=== PATIENT | male | born 1980 | race Caucasian/White ===

== ENCOUNTER 2019-09-26 05:45 | Outpatient (RCR) | payer MEDICARE ==
[~2019-09-26] VITALS: Ht 190 cm; Wt 115.0 kg
[~2019-09-26 05:45] MED LIST: AMOX-355 PO; FLUT16SP22 NSEACH; HYDR25CA5; LORA0.5T PO; LORA10CA PO; PARO30TA2 PO; PARO40TA PO; PARO40TA47; VICODIN 5-325 MG TAB PO
== END 2019-09-26 15:07 | disposition home or self-care (01) ==
LOC: PREOP 05:45
PROVIDERS: ATTEND Urology
DX: Z01.818 Encounter for other preprocedural examination (principal); N43.3 Hydrocele, unspecified; Z20.828 Contact with and (suspected) exposure to other viral communicable diseases
CPT/HCPCS: 87635

== ENCOUNTER 2019-10-01 06:01 | Day surgery (SDC) | payer MEDICARE ==
[~2019-10-01] VITALS: Ht 190 cm; Wt 115.0 kg
[2019-10-01] VITALS (9 sets, daily range): BP systolic 117–146; BP diastolic 77–99
--- OUTSIDE RECORDS SUMMARY | 2019-10-01 06:17 | XMS REPORT ---
Author Author [employer] [facility] [place] [employer] [facility] [employer] Address [address] [address] Care Team Providers Care Theatre Instructor Name Role Phone KIRAN CHATTERJEE Unavailable Unavailable STEFANIE CATALAN Unavailable Unavailable PARDEEP YE Unavailable Unavailable CATALAN, STEFANIE Unavailable ALAYNA, STEFANIE Unavailable KERRI DIAZ Unavailable ALAYNA, STEFANIE Unavailable HEBER TRIPLETT Unavailable JOMAR SOLIS Unavailable KERRI VIVAS Unavailable Migration, Doctor Unavailable Unavailable Migration, Doctor Unavailable Unavailable Migration, Doctor Unavailable Unavailable Migration, Doctor Unavailable Unavailable ASHWINI ARCOS Unavailable MILTON SANTO Unavailable PCP, NONE Unavailable Unavailable Unavailable Unavailable JERRY GUILLERMO, FLORIN Stallings Unavailable Unavailable ANGELICA GUILLERMO, CHENCHO Regan Unavailable Unavailable BRITTNEE GUILLERMO, ELENO Velazquez Unavailable Unavailable Unavailable Unavailable Unavailable Unavailable Unavailable Unavailable Allergies The data below is from unstructured sources Substance Reaction Event Type N.K.D.A. Info Not Available Non Drug Allergy No Information Medications Medication Ingredient Drug Dose Dates Status Sig Sig Care Class(es) (Normalized) (Original) Provid er cetirizine Cetirizine Histamine-1 10 mg 02-28-20 Active no Cetirizine no hydrochlori Translation Receptor 18 information HCl 10 MG name de 10 mg s: [ Antagonist Orally Once oral tablet Cetirizine a day 1 (3 HCl 10 MG] tablet 24h sources.) Feb, 30 day(s) Active predniSONE predniSONE no 60 mg 03-16-20 Active no Predn iSONE no 20 mg oral Translation information 18 information 20 MG O rally name tablet (1 s: [ Once a day 3 source.) PredniSONE tablet daily 20 MG] for 3 days, then 2 tablets daily for 3 days, then 1 tablet daily for 3 days. 24h Feb, 9 days Active Problems Problem Normalized Date Last Normalized Normalized Provider Fa cility Classification Problem(s) Recorded Problem Problem Sta tus Duration Anxiety Anxiety state, 09-19-2019 - Chronic Active FLORIN [facility] Via disorders (2 unspecified Elisabeth EDWARDS sources.) [facility] [place] ([id number]) Immunizations Contact with 09-30-2019 - Episodic Active ELENOSHWETA BEAULIEU [facility] Via and screening and [facility] for infectious (suspected) Hospital - disease (2 exposure to [place] sources.) other viral ([id number]) communicable diseases Other upper Deviated nasal 09-19-2019 - Episodic Active TRICIA DOMINGUEZ [facility] Via respiratory septum , [facility] disease (4 Hospital - sources.) [place] ([address]687) Headache; Headache 09-19-2019 - Episodic Active FLORIN [facility] Via including Elisabeth EDWARDS migraine (2 [facility] Hospital - sources.) [place] ([id number]) Other male Hydrocele, 09-30-2019 - Episodic Active ELENOSHWETA BEAULIEU , [facility] Via genital unspecified [facility] disorders (2 Hospital - sources.) [place] ([id number]) Other upper Hypertrophy of 09-19-2019 - Episodic Active TRICIA DOMINGUEZ [facility] Via respiratory nasal , [facility] disease (4 turbinates Hospital - sources.) [place] ([address]339) Residual Other and 09-19-2019 - Chronic Active FLORIN [facility] Via codes; unspecified Elisabeth EDWARDS unclassified special Hospital - (4 sources.) symptoms or [place] syndromes, not ([id number]) elsewhere classified Other upper Other disease 09-19-2019 - Episodic Active FLORIN [facility] Via respiratory of nasal Elisabeth EDWARDS disease (2 cavity and MD Hospital - sources.) sinuses [place] ([id number]) Procedures Procedure Normalized Procedure Procedure Result Performer Facility Date 03-16-2018 [facility] visit, estab pt no information no name [facility] ([id number]) 03-07-2018 [facility] visit, estab pt no information no name [facility] ([id number]) 02-27-2018 [facility] visit, estab pt no information no name [facility] ([id number]) 07-04-2014 [place] influenza no information no name [facility] (69018) Immunizations The data below is from unstructured sources No Known Immunizations No Known Immunizations No Known Immunizations No Known Immunizations No Known Immunizations No Known Immunizations No Known Immunizations No Known Immunizations No Known Immunizations No Known Immunizations No Known Immunizations No Known Immunizations No Known Immunizations No Known Immunizations No Known Immunizations No Known Immunizations No Known Immunizations No Known Immunizations No Known Immunizations No Known Immunizations No Known Immunizations No Known Immunizations No Known Immunizations No Known Immunizations No Known Immunizations No Known Immunizations No Known Immunizations Results Test Name Value Interpretation Reference Range Date Time Fa cility (Normalized) (Normalized) (Medline Reference) laboratory on 2019-09-26 Coronavirus Ab Negative (no code) 09-26-2019 PENDING LOC ATION Qn (S) 04:02-0400 [facility] ([id number]) laboratory on 2019-09-18 Albumin 4.7 g/dL (N) 3.4 - 5.4 g/dL [facility] [Mass/Vol] [facility] (04266) Albumin/Globulin 2.1 {ratio} (N) 1 - 2.5 {ratio} Comm [facility] [Mass ratio] [facility] (13778) ALP [Catalytic 59 U/L (N) 44 - 147 U/L [facility] activity/Vol] [facility] (66022) ALT [Catalytic 69 U/L (H) 4 - 40 U/L [facility] ealth activity/Vol] [facility] (90910) AST [Catalytic 30 U/L (N) 10 - 34 U/L [facility] activity/Vol] [facility] (56061) Basophils (Bld) 0.031 10*3/uL (N) 0 - 0.3 10*3/uL [facility] [#/Vol] [facility] (61450) Basophils/100 0.5 % (N) 0.5 - 1 % [facility] WBC (Bld) [facility] (15081) Bilirubin 0.5 mg/dL (N) 0.1 - 1.2 mg/dL [facility] [Mass/Vol] [facility] (89260) Calcium 9.6 mg/dL (N) 8.5 - 10.2 mg/dL [facility] [Mass/Vol] [facility] (77833) Chloride 105 mmol/L (N) 95 - 106 mmol/L [facility] [Moles/Vol] [facility] (59142) CO2 [Moles/Vol] 26 mmol/L (N) 23 - 29 mmol/L [facility] (22492) Creatinine 0.98 mg/dL (N) [facility] [Mass/Vol] [facility] (78478) Eosinophils 0.079 10*3/uL (N) 0.05 - 0.5 [facility] alth (Bld) [#/Vol] 10*3/uL [facility] (67692) Eosinophils/100 1.3 % (N) 1 - 4 % [facility] WBC (Bld) [facility] (46499) Erythrocyte 12.4 % (N) 11.6 - 14.6 % [facility] ealth distribution [facility] (RBC) [facility] [Ratio] (16024) GFR/1.73 sq M 113 (N) 90 - 120 [facility] alth predicted among mL/min/{1.73_m2} mL/min/{1.73_m2} [facility] MDRD [facility] (S/P/Bld) [Vol (76930) rate/Area] GFR/1.73 sq 97 (N) 90 - 120 [facility] Heal th M.predicted MDRD mL/min/{1.73_m2} mL/min/{1.73_m2} [facility] (S/P/Bld) [Vol [facility] rate/Area] (01254) Globulin (S) 2.2 g/dL (N) 2 - 3.5 g/dL [facility] ealt [Mass/Vol] [facility] (97059) Glucose 94 mg/dL (N) 60 - 125 mg/dL [facility] [Mass/Vol] [facility] (19565) Hematocrit (Bld) 42.7 % (N) 36.1 - 50.3 % [facility] ity Health [Volume [facility] fraction] [facility] (18914) Hemoglobin (Bld) 14.4 g/dL (N) 12.1 - 17.2 g/dL [facility] [Mass/Vol] [facility] (98124) Lymphocytes 2.336 10*3/uL (N) 0.9 - 2.9 [facility]th (Bld) [#/Vol] 10*3/uL [facility] (23024) Lymphocytes/100 38.3 % (N) 20 - 40 % [facility] WBC (Bld) [facility] (09765) MCH (RBC) 32.4 pg (N) 27 - 31 pg [facility] [Entitic mass] [facility] (27821) MCHC (RBC) 33.7 g/dL (N) 32 - 36 g/dL [facility] He alth [Mass/Vol] [facility] (19601) MCV (RBC) 96.2 fL (N) 80 - 100 fL [facility] Hea lth [Entitic vol] [facility] (19303) Monocytes (Bld) 0.604 10*3/uL (N) 0.3 - 0.9 Communit y Health [#/Vol] 10*3/uL [facility] (29343) Monocytes/100 9.9 % (N) 2 - 8 % [facility] WBC (Bld) [facility] (74706) Neutrophils 3.05 10*3/uL (N) 1.7 - 7 10*3/uL [facility] (Bld) [#/Vol] [facility] (97960) Neutrophils/100 50 % (N) 40 - 60 % [facility] WBC (Bld) [facility] (81693) Platelet mean 8.9 fL (N) 7.2 - 11.7 fL [facility] volume (Bld) [facility] [Entitic vol] [facility] (64340) Platelets (Bld) 262 10*3/uL (N) 150 - 450 [facility] [#/Vol] 10*3/uL [facility] (71723) Potassium 4.4 mmol/L (N) 3.7 - 5.2 mmol/L [facility] [Moles/Vol] [facility] (04912) Protein 6.9 g/dL (N) 6.4 - 8.3 g/dL [facility] [Mass/Vol] [facility] (29773) RBC (Bld) 4.44 10*6/uL (N) 4.2 - 6.1 [facility] [#/Vol] 10*6/uL [facility] (40014) Sodium 139 mmol/L (N) 135 - 145 mmol/L [facility] [Moles/Vol] [facility] (69232) Urea nitrogen 15 mg/dL (N) 7 - 20 mg/dL [facility] [Mass/Vol] [facility] (65692) Urea NOT APPLICABLE (no code) [facility] (63165) WBC (Bld) 6.1 10*3/uL (N) 3.5 - 10.5 [facility] [#/Vol] 10*3/uL [facility] (15913) not yet categorized on 2019-05-07 Exp date Negative (no code) [facility] Healt [facility] (50655) Exp date 12/10/2020 (no code) [facility] (79929) Lot # [id number] (no code) [facility] (86250) Vital Signs Vital Sign Value Interpretation Reference Date Time Care Prov ider Facility (Normalized) (Normalized) Range BMI (Body Mass 34.52 kg/m2 (no code) 15 - 25 kg/m2 03-16-2018 D AVID TORCHIA Community Index) 18:00-[id number] [place] [address] (15705) BMI (Body Mass 34.57 kg/m2 (no code) 15 - 25 kg/m2 03-07-2018 CH RISTY Community Index) 16:05-[id number] [place] [address] (30572) BMI (Body Mass 34.52 kg/m2 (no code) 15 - 25 kg/m2 02-27-2018 YANE HAND Community Index) 16:50-[address] ([address]) Body 97.6 [degF] (no code) 97.8 - 99.0 03-16-2018 KERRI WILLIS [facility] Temperature [degF] 18:00-[address] [place] [address] (97444) Body 98.2 [degF] (no code) 97.8 - 99.0 03-07-2018 [facility] Temperature [degF] 16:05-[address] ([address]) Body 98.1 [degF] (no code) 97.8 - 99.0 02-27-2018 [facility] [degF[facility] 16:50-[address] ([address]) Body 97.6 [degF] (no code) 97.8 - 99.0 07-04-2014 [facility] Temperature [degF] 16:05-[address] ([address]61) Body 98 [degF] (no code) 97.8 - 99.0 02-12-2014 [facility] Temperature [degF] 19:45-[address] [place] [address] (37937) Body weight 104.95 kg (no code) kg 07-04-2014 [place] [facility] 16:05-[address] ([address]) Body weight 103.42 kg (no code) kg 02-12-2014 [facility] 19:45-[address] [place] [address] (47839) Height 190.5 cm (no code) cm 03-16-2018 KERRI Barron [facility]ity 18:00-[address] [place] [address] (95944) Height 190.5 cm (no code) cm 03-07-2018 [facility] ity 16:05-[address] (80732) Height 190.5 cm (no code) cm 02-27-2018 HEBER Simmsu nity 16:50-[address] ([address]) Height 190.5 cm (no code) cm 07-04-2014 ASHWINI Dove ity 16:05-[address] [place] [address] ([id number]) Height 190.5 cm (no code) cm 02-12-2014 MILTON Natarajan mmunity 19:45-[address] [place] [address] (88127) Weight 125.28 kg (no code) kg 03-16-2018 KERRI ORTEGA [facility] 18:00-[address] [place] [address] ([id number]) Weight 125.47 kg (no code) kg 03-07-2018 JOMAR Springer nity 16:05-[address] [place] [address] (42773) Weight 125.28 kg (no code) kg 02-27-2018 HEBER Simms unity 16:50-[address] ([address]) Interventions No Information Plan of Treatment The data below is from unstructured sources Activity Details Follow Up prn Reason: Activity Details Follow Up 1 Year Reason: Activity Details Follow Up if not improving with PCP or reg follow up Reason: Goals No Information Social History No Information Functional Status No Information Mental Status No Information Encounters Encounter Normalized Encounter Encounter Diagnosis Care Provi vicki Organization Date Type 03-16-2018 (WALK-IN) Walk-In Care Acute sinusitis, KERRI CHAUDHARI [place] (no [facility] unspecified phone) CARE (no phone) 03-07-2018 (WALK-IN) Walk-In Care Acute sinusitis, JOMAR [place]Z (no [facility] unspecified phone) CARE (no phone) 02-27-2018 (WALK-IN) Walk-In Care Acute upper DIVINE DAVIN ON (no [facility] respiratory infection, phone) CARE (no phone) unspecified 11-06-2014 Emergency department no information [facility] Via Elisabeth - patient visit (no phone) [facility] 11-06-2014 (no phone) 09-26-2019 Patient encounter no information ELENO BEAULIEU MD ( no [facility] Via Elisabeth - procedure phone) [facility] 09-26-2019 (no phone) 09-24-2019 Patient encounter no information ELENO BEAULIEU MD ( no [facility] Via Elisabeth procedure phone) [facility] (no phone) 09-18-2019 Patient encounter no information NONE PCP (no phone ) [facility] procedure (no phone) (no phone) [facility] (no phone) 09-11-2019 Patient encounter no information NONE PCP (no phone ) [facility] procedure (no phone) [facility] (no phone) 05-07-2019 Patient encounter no information no name no or ganization name procedure 03-07-2018 Patient encounter no information no name no or ganization name procedure 09-26-2014 Patient encounter no information CHENCHO DOMINGUEZ MD (no [facility] Via Elisabeth - procedure phone) [facility] 09-26-2014 (no phone) 09-24-2014 Patient encounter no information CHENCHO DOMINGUEZ MD (no [facility] Via Elisabeth procedure phone) [facility] (no phone) 03-16-2018 Telephone encounter no information JOMAR SOLIS (no [facility] phone) (no phone) no information Encounter for general no name no organ ization name adult medical examination without abnormal findings no information Pre-operative no name (no phone) examination, unspecified no information Encounter for other no name (no phone) preprocedural examination Medical Equipment No Information Payers No Information Summary Purpose eClinicalWorks SubmissioneClinicalWorks SubmissioneClinicalWorks SubmissioneClinicalWorks SubmissioneClinicalWorks SubmissioneClinicalWorks SubmissioneClinicalWorks Submission Additional Source Comments This clinical document has been generated using [employer] software that has been certified by the Office of the National Coordinator for Health Information Technology (ONC 15.99.04.3023.Diam.31.00.0.359407) and the National Committee for Bit Setter (NCQA, as an eMeasure certified technology). FOR RECORDS PERTAINING TO PATIENTS WHO ARE OR HAVE BEEN ENROLLED IN A CHEMICAL D EPENDENCY/SUBSTANCE ABUSE PROGRAM, SOME INFORMATION MAY BE OMITTED. This clinica l summary was aggregated from multiple sources. Caution should be exercised in using it in the provision of clinical care. This summary normalizes information from multiple sources, and as a consequence, information in this document may ma terially change the coding, format and clinical context of patient data. In leah tion, data may be omitted in some cases. CLINICAL DECISIONS SHOULD BE BASED ON T HE PRIMARY CLINICAL RECORDS. [employer]. provides no warranty or guara ntee of the accuracy or completeness of information in this document.The followi ng information is based on time limited clinical information UNRECOGNIZED CONTENT PROVIDED BELOW FOR UNRECOGNIZED SECTION MEDICAL (GENERAL) HISTORY Type Description Date Medical History depression, anxiety Surgical History tonsillectomy Surgical History sinus surgery 2014 Surgical History Nasal repair 2015 UNRECOGNIZED CONTENT PROVIDED BELOW FOR UNRECOGNIZED SECTION REASON FOR VISIT Sore throat, headache, swollen lymph nodes - MPeters, MASore throat; was given Z yrtec on 02/27/18 in [facility], but it has not helped - MPeters, MAHeadache, sinus con gestion, rhinnorhea in the evening, aching pain in neck rated a 7. Augmentin thom en today, states he has 3 left. Zyrtec and Paxil also taken today. Nikkie MCGILL-MigEMR-MigEMR-MigEMR-Codey
--- OUTSIDE RECORDS SUMMARY | 2019-10-01 06:18 | XMS REPORT ---
Author Yony Abarca [facility] eClinicalWorks Address Unknown Phone Unavailable Care Team Providers Care Medical Accountant Name Role Phone PARDEEP YE Unavailable Allergies No Known Allergies Problems Problem Type Condition Code Onset Dates Condition Statu s Problem Nasal congestion R09.81 Active Medications No Known Medications Results No Known Results Summary Purpose eClinicalWorks Submission
--- OUTSIDE RECORDS SUMMARY | 2019-10-01 06:18 | XMS REPORT ---
Author Author Yony SOLIS Organization [facility] Address [address] [place] [address] Care Team Providers Care Shrimping Boat Captain Name Role Phone JOMAR SOLIS Unavailable PROBLEMS Type Condition ICD9-CM Code [id number] Code Onset Dates Condition S tatus SNOMED Code Problem Dysthymia F34.1 Active 67565787 Problem Alcoholism F10.20 Active 2542712 ALLERGIES Substance Reaction Event Type Date Status Cefaclor Unknown Drug Allergy Feb, Active ENCOUNTERS Encounter Location Date Diagnosis [facility] [address] [id number] [address] [place] [phone] Feb, Acute non-recurrent sinusiti s, unspecified location J01.90 [facility] [address] [id number] [address] [place] [address] Feb, Acute upper respiratory infe ction J06.9 [facility] [id number] [place] [address] Mar, Alcoholism F10.20 and Dysthy yonathan F34.1 [facility] [address] [id number] [address] [place] [phone] Feb, Acute suppurative otitis med ia of right ear without spontaneous rupture of tympanic membrane, recurrence not specified H66.001 [facility] [address] [id number] [address] [place] [phone] 17 Feb, 2017 Sore throat J02.9 and Acute suppurative otitis media of right ear without spontaneous rupture of tympanic membrane, recurrence not specified H66.001 [facility] [address] [facility] [id number] [address] [place] [address] August, Acute non-recurrent pansinus itis J01.40 [facility] [address] [id number] [address] [place] [address] Jan, Acute non-recurrent pansinus itis J01.40 [facility] [address] [id number] [address] [place] [phone] 17 Jan, 2016 Acute upper respiratory infe ction, unspecified J06.9 [facility] [address] [facility] [id number] [address] [place] [phone] Sep, Insomnia G47.00 [facility] [address] [id number] [address] [place] [phone] Jul, Wellness examination Z00.00 [facility] [address] [facility] [id number] [address] [place] [phone] Jul, [facility] [address] [facility] [id number] [address] [place] [phone] Jul, Nasal congestion R09.81 ; In somnia G47.00 ; Alcohol abuse F10.10 and Wellness examination Z00.00 [facility] [address] [id number] [address] [place] [phone] Jan, Nasal congestion R09.81 [facility] [address] [id number] [address] [place] [phone] Jan, [facility] [address] [id number] [address] [place] [phone] Jan, Nasal congestion R09.81 [facility] [address] [id number] [address] [place] [phone] 14 Jul, 2014 [facility] [address] [id number] [address] [place] [phone] Jul, [facility] [address] [facility] [id number] [address] [place] [phone] Jun, [facility] [address] [facility] [id number] [address] [place] [phone] Jun, [facility] [address] [id number] [address] [place] [phone] Jan, [facility] [address] [id number] [address] [place] [phone] Jan, [facility] [address] [id number] [address] [place] [phone] Feb, [facility] [address] [id number] [address] [place] [phone] Feb, [facility] [address] [id number] [address] [place] [phone] Feb, [facility] [address] [id number] [address] [place] [phone] Feb, [facility] [address] [id number] [address] [place] [phone] Feb, [facility] [address] [id number] [address] [place] [phone] Feb, [facility] [address] [id number] [address] [place] [phone] Feb, [facility] [address] [id number] [address] [place] [phone] Feb, [facility] [address] [id number] [address] [place] [phone] Feb, [facility] [address] [id number] [address] [place] [phone] Dec, [facility] [address] [id number] [address] [place] [phone] Nov, [facility] [address] [id number] [address] [place] [id number] Mar, IMMUNIZATIONS No Known Immunizations SOCIAL HISTORY Never Assessed REASON FOR VISIT Sore throat; was given Zyrtec on 02/27/18 in [facility], but it has not helped - Osmel riddle MA PLAN OF CARE Activity Details Follow Up if not improving with PCP or reg follow up Reason: VITAL SIGNS Height 75 in 2018-03-07 Weight 276.6 lbs 2018-03-07 Temperature 98.2 degrees Fahrenheit 2018-03-07 Heart Rate 76 bpm 2018-03-07 Respiratory Rate 20 2018-03-07 BMI 34.57 kg/m2 2018-03-07 Blood pressure systolic 120 mmHg 2018-03-07 Blood pressure diastolic 90 mmHg 2018-03-07 MEDICATIONS Medication Instructions Dosage Frequency Start Date End Date Duration S tatus Cetirizine HCl 10 MG Orally Once a day 1 tablet 24h 13 Feb, 2018 30 day(s) Active Augmentin 875-125 MG Orally every 12 hrs 1 tablet 12h Feb, 10 day(s) Active Paxil 30 MG Orally Once a day 1 tablet in the morning 24h Active RESULTS No Results PROCEDURES Procedure Date Ordered Result Body Site [facility] VISIT ESTABLISHED PATIENT Mar 07, 2018 INSTRUCTIONS MEDICATIONS ADMINISTERED No Known Medications MEDICAL (GENERAL) HISTORY Type Description Date Medical History depression, anxiety Surgical History tonsillectomy Surgical History sinus surgery 2014 Surgical History Nasal repair 2015
--- OUTSIDE RECORDS SUMMARY | 2019-10-01 06:18 | XMS REPORT ---
Author Author Yony ARCOS Organization [facility] Address [address] [place] [address] Care Team Providers Care Transformer Builder Name Role Phone ASHWINI ARCOS Unavailable PROBLEMS Type Condition ICD9-CM Code [id number] Code Onset Dates Condition S tatus SNOMED Code Problem Alcoholism F10.20 Active 8679893 Problem Dysthymia F34.1 Active [id number] ALLERGIES No Information ENCOUNTERS Encounter Location Date Diagnosis [facility] [address] [id number] [address] [place] [address] 30 Feb, 2018 Acute sinusitis J01.90 [facility] [address] [phone] Feb, [facility] [address] [id number] [address] [place] [address] Feb, Acute non-recurrent sinusiti s, unspecified location J01.90 [facility] [address] [id number] [address] [place] [address] Feb, Acute upper respiratory infe ction J06.9 [facility] [address] [id number] [address] [place] [phone] Mar, Alcoholism F10.20 and Dysthy yonathan F34.1 [facility] [address] [id number] [address] [place] [phone] 28 Feb, 2017 Acute suppurative otitis med ia of right ear without spontaneous rupture of tympanic membrane, recurrence not specified H66.001 [facility] [address] [facility] [id number] [address] [place] [id number] 17 Feb, 2017 Sore throat J02.9 and Acute suppurative otitis media of right ear without spontaneous rupture of tympanic membrane, recurrence not specified H66.001 [facility] [address] [id number] [address] [place] [phone] August, Acute non-recurrent pansinus itis J01.40 [facility] [address] [id number] [address] [place] [phone] Jan, Acute non-recurrent pansinus itis J01.40 [facility] [address] [id number] [address] [place] [phone] 17 Jan, 2016 Acute upper respiratory infe ction, unspecified J06.9 [facility] [address] [id number] [address] [place] [address] Sep, Insomnia G47.00 [facility] [address] [id number] [address] [place] [phone] 19 Jul, 2015 Wellness examination Z00.00 [facility] [address] [id number] [address] [place] [phone] Jul, [facility] [address] [facility] [id number] [address] [place] [phone] 18 Jul, 2015 Nasal congestion R09.81 ; In somnia G47.00 ; Alcohol abuse F10.10 and Wellness examination Z00.00 [facility] [address] [facility] [id number] [address] [place] [phone] Jan, Nasal congestion R09.81 [facility] [address] [id number] [address] [place] [phone] 05 Jan, 2015 [facility] [address] [facility] [id number] [address] [place] [phone] Jan, Nasal congestion R09.81 [facility] [address] [id number] [address] [place] [phone] 14 Jul, 2014 [facility] [address] [facility] [id number] [address] [place] [phone] 13 Jul, 2014 [facility] [address] [id number] [address] [place] [phone] Jun, [facility] [address] [id number] [address] [place] [id number] Jun, [facility] [address] [id number] [address] [place] [phone] Jan, [facility] [address] [id number] [address] [place] [address] Jan, [facility] [address] [id number] [address] [place] [phone] Feb, [facility] [address] [id number] [address] [place] [phone] Feb, [facility] [address] [id number] [address] [place] [phone] Feb, [facility] [address] [id number] [address] [place] [phone] Feb, [facility] [address] [id number] [address] [place] [phone] 08 Feb, 2012 [facility] [address] [id number] [address] [place] [phone] Feb, [facility] [address] [id number] [address] [place] [phone] Feb, [facility] [address] [id number] [address] [place] [phone] Feb, [facility] [address] [id number] [address] [place] [id number] Feb, [facility] [address] [id number] [address] [place] [address] Dec, [facility] [address] [id number] [address] [place] [phone] Nov, [facility] [address] [id number] [address] [place] [phone] 31 Dec, 2010 IMMUNIZATIONS No Known Immunizations SOCIAL HISTORY Never Assessed REASON FOR VISIT PLAN OF CARE VITAL SIGNS Height 75 in 2014-07-04 Weight 231.38 lbs 2014-07-04 Temperature 97.6 degrees Fahrenheit 2014-07-04 Heart Rate 72 bpm 2014-07-04 Respiratory Rate 20 2014-07-04 Blood pressure systolic 125 mmHg 2014-07-04 Blood pressure diastolic 75 mmHg 2014-07-04 MEDICATIONS No Known Medications RESULTS No Results PROCEDURES Procedure Date Ordered Result Body Site INFLUENZA ASSAY W/OPTIC July 04, 2014 INSTRUCTIONS MEDICATIONS ADMINISTERED No Known Medications MEDICAL (GENERAL) HISTORY Type Description Date Medical History depression, anxiety Surgical History tonsillectomy Surgical History sinus surgery 2014 Surgical History Nasal repair 2015
--- OUTSIDE RECORDS SUMMARY | 2019-10-01 06:18 | XMS REPORT ---
Author Author Yony VIVAS Organization [facility] Address [address] [place] [address] Care Team Providers Care Vault Manager Name Role Phone KERRI VIVAS Unavailable PROBLEMS Type Condition ICD9-CM Code [id number] Code Onset Dates Condition S tatus SNOMED Code Problem Dysthymia F34.1 Active 83265184 Problem Alcoholism F10.20 Active 8722997 ALLERGIES Substance Reaction Event Type Date Status Cefaclor Unknown Drug Allergy Feb, Active ENCOUNTERS Encounter Location Date Diagnosis [facility] [address] [id number] Feb, Acute sinusitis J01.90 [facility] [address] [id number] Feb, [facility] [address] [address] Feb, Acute non-recurrent sinusiti s, unspecified location J01.90 [facility] [address] [address] Feb, Acute upper respiratory infe ction J06.9 [facility] [address] [address] Mar, Alcoholism F10.20 and Dysthy yonathan F34.1 [facility] [address] [id number] 28 Feb, 2017 Acute suppurative otitis med ia of right ear without spontaneous rupture of tympanic membrane, recurrence not specified H66.001 [facility] [address] [id number] [address] [place] [address] 17 Feb, 2017 Sore throat J02.9 and Acute suppurative otitis media of right ear without spontaneous rupture of tympanic membrane, recurrence not specified H66.001 [facility] [address] [id number] [address] [place] [address] August, Acute non-recurrent pansinus itis J01.40 [facility] [address] [id number] [address] [place] [address] Jan, Acute non-recurrent pansinus itis J01.40 [facility] [address] [id number] [address] [place] [phone] 17 Jan, 2016 Acute upper respiratory infe ction, unspecified J06.9 [facility] [address] [id number] [address] [place] [address] Sep, Insomnia G47.00 [facility] [address] [facility] [id number] [address] [place] [address] Jul, Wellness examination Z00.00 [facility] [address] [facility] [id number] [address] [place] [address] Jul, [facility] [address] [facility] [id number] [address] [place] [address] 18 Jul, 2015 Nasal congestion R09.81 ; In somnia G47.00 ; Alcohol abuse F10.10 and Wellness examination Z00.00 [facility] [address] [facility] [id number] [address] [place] [address] Jan, Nasal congestion R09.81 [facility] [address] [id number] [address] [place] [address] Jan, [facility] [address] [id number] [address] [place] [address] Jan, Nasal congestion R09.81 [facility] [address] [facility] [id number] [address] [place] [address] 14 Jul, 2014 [facility] [address] [facility] [id number] [address] [place] [phone] Jul, [facility] [address] [id number] [address] [place] [address], [place] [address] Jun, [facility] [address] [id number] [address] [place] [address], [place] [address] Jun, [facility] [address] [id number] [address] [place] [address], [place] [address] Jan, [facility] [address] [id number] [address] [place] [address], [place] [address] Jan, [facility] [address] [id number] [address] [place] [address], [place] [address] Feb, [facility] [address] [id number] [address] [place] [address], [place] [address] Feb, [facility] [address] [id number] [address] [place] [address], [place] [address] Feb, [facility] [address] [id number] [address] [place] [address], [place] [address] Feb, [facility] [address] [id number] [address] [place] [address], [place] [address] Feb, [facility] [address] [id number] [address] [place] [address] Feb, [facility] [address] [id number] [address] [place] [address] Feb, [facility] [address] [id number] [address] [place] [address] Feb, [facility] [address] [id number] [address] [place] [address], [place] [address] Feb, [facility] [address] [id number] [address] [place] [phone] Dec, [facility] [address] [id number] [address] [place] [address] Nov, [facility] [address] [id number] [address] [place] [address] Mar, IMMUNIZATIONS No Known Immunizations SOCIAL HISTORY Never Assessed REASON FOR VISIT Headache, sinus congestion, rhinnorhea in the evening, aching pain in neck rated a 7. Augmentin taken today, states he has 3 left. Zyrtec and Paxil also taken today. [email or web address] PLAN OF CARE Activity Details Follow Up if not improving with PCP or reg follow up Reason: VITAL SIGNS Height 75 in 2018-03-16 Weight 276.2 lbs 2018-03-16 Temperature 97.6 degrees Fahrenheit 2018-03-16 Heart Rate 88 bpm 2018-03-16 Respiratory Rate 20 2018-03-16 BMI 34.52 kg/m2 2018-03-16 Blood pressure systolic 136 mmHg 2018-03-16 Blood pressure diastolic 94 mmHg 2018-03-16 MEDICATIONS Medication Instructions Dosage Frequency Start Date End Date Duration S tatus PredniSONE 20 MG Orally Once a day 3 tablet daily for 3 days, then 2 tablets daily for 3 days, then 1 tablet daily for 3 days. 24h 30 Feb, 2018 9 days Active Cetirizine HCl 10 MG Orally Once a day 1 tablet 24h 13 Feb, 2018 30 day(s) Active Paxil 30 MG Orally Once a day 1 tablet in the morning 24h Active Augmentin 875-125 MG Orally every 12 hrs 1 tablet 12h 21 Feb, 2018 10 day(s) Active RESULTS No Results PROCEDURES Procedure Date Ordered Result Body Site [facility] V[facility] ESTABLISHED PATIENT Mar 16, 2018 INSTRUCTIONS MEDICATIONS ADMINISTERED No Known Medications MEDICAL (GENERAL) HISTORY Type Description Date Medical History depression, anxiety Surgical History tonsillectomy Surgical History sinus surgery 2014 Surgical History Nasal repair 2015
--- OUTSIDE RECORDS SUMMARY | 2019-10-01 06:18 | XMS REPORT ---
Author Author Yony SOLIS Organization [facility] Address [address] [place] [address] Care Team Providers Care Account Support Specialist Name Role Phone JOMAR SOLIS Unavailable PROBLEMS Type Condition ICD9-CM Code [id number] Code Onset Dates Condition S tatus SNOMED Code Problem Dysthymia F34.1 Active 37018922 Problem Alcoholism F10.20 Active 9572477 ALLERGIES No Information ENCOUNTERS Encounter Location Date Diagnosis [facility] [address] [address] 30 Feb, 2018 Acute sinusitis J01.90 [facility] [address] [address] Feb, [facility] [address] [address] Feb, Acute non-recurrent sinusiti s, unspecified location J01.90 [facility] [address] [address] Feb, Acute upper respiratory infe ction J06.9 [facility] [address] [address] Mar, Alcoholism F10.20 and Dysthy yonathan F34.1 [facility] [address] [address] 28 Feb, 2017 Acute suppurative otitis med ia of right ear without spontaneous rupture of tympanic membrane, recurrence not specified H66.001 [facility] [address] [place] [id number] [address] [place] [id number] 17 Feb, 2017 Sore throat J02.9 and Acute suppurative otitis media of right ear without spontaneous rupture of tympanic membrane, recurrence not specified H66.001 [facility] [address] [id number] [address] [place] [address] August, Acute non-recurrent pansinus itis J01.40 [facility] [address] [id number] [address] [place] [address] Jan, Acute non-recurrent pansinus itis J01.40 [facility] [address] [id number] [address] [place] [phone] 17 Jan, 2016 Acute upper respiratory infe ction, unspecified J06.9 [facility] [address] [id number] [address] [place] [phone] Sep, Insomnia G47.00 [facility] [address] [id number] [address] [place] [address] Jul, Wellness examination Z00.00 [facility] [address] [id number] [address] [place] [address] Jul, [facility] [address] [facility] [id number] [address] [place] [id number] 18 Jul, 2015 Nasal congestion R09.81 ; In somnia G47.00 ; Alcohol abuse F10.10 and Wellness examination Z00.00 [facility] [address] [id number] [address] [place] [address] Jan, Nasal congestion R09.81 [facility] [address] [id number] [address] [place] [phone] 05 Jan, 2015 [facility] [address] [id number] [address] [place] [phone] Jan, Nasal congestion R09.81 [facility] [address] [id number] [address] [place] [phone] 14 Jul, 2014 [facility] [address] [facility] [id number] [address] [place] [phone] 13 Jul, 2014 [facility] [address] [id number] [address] [place] [address], [place] [phone] Jun, [facility] [address] [id number] [address] [place] [address], [place] [phone] Jun, [facility] [address] [id number] [address] [place] [address], [place] [phone] Jan, [facility] [address] [id number] [address] [place] [address], [place] [phone] Jan, [facility] [address] [id number] [address] [place] [address], [place] [phone] Feb, [facility] [address] [id number] [address] [place] [address], [place] [phone] Feb, [facility] [address] [id number] [address] [place] [address], [place] [phone] Feb, [facility] [address] [id number] [address] [place] [address], [place] [phone] Feb, [facility] [address] [id number] [address] [place] [address], [place] [phone] 08 Feb, 2012 [facility] [address] [id number] [address] [place] [address], [place] [phone] Feb, [facility] [address] [id number] [address] [place] [address], [place] [phone] Feb, [facility] [address] [id number] [address] [place] [address], [place] [phone] Feb, [facility] [address] [id number] [address] [place] [phone] Feb, [facility] [address] [id number] [address] [place] [phone] Dec, [facility] [address] [id number] [address] [place] [phone] Nov, [facility] [address] [id number] [address] [place] [phone] Mar, IMMUNIZATIONS No Known Immunizations SOCIAL HISTORY Never Assessed REASON FOR VISIT Medication refill request PLAN OF CARE VITAL SIGNS MEDICATIONS No Known Medications RESULTS No Results PROCEDURES No Known procedures INSTRUCTIONS MEDICATIONS ADMINISTERED No Known Medications MEDICAL (GENERAL) HISTORY Type Description Date Medical History depression, anxiety Surgical History tonsillectomy Surgical History sinus surgery 2014 Surgical History Nasal repair 2016
--- OUTSIDE RECORDS SUMMARY | 2019-10-01 06:18 | XMS REPORT ---
Author Author Yony Major Doctor Organization [facility] Address Unknown Phone Unavailable Care Team Providers Care Automotive Electrical Helper Name Role Phone Migration, Doctor Unavailable Unavailable PROBLEMS Type Condition ICD9-CM Code [id number] Code Onset Dates Condition S tatus SNOMED Code Problem Alcoholism F10.20 Active 5785745 Problem Dysthymia F34.1 Active 41876189 ALLERGIES No Information ENCOUNTERS Encounter Location Date Diagnosis [facility] [address] [address] Feb, Acute sinusitis J01.90 [facility] [address] [address] Feb, [facility] [address] [address] Feb, Acute non-recurrent sinusiti s, unspecified location J01.90 [facility] [address] [address] Feb, Acute upper respiratory infe ction J06.9 [facility] [address] [address] Mar, Alcoholism F10.20 and Dysthy yonathan F34.1 [facility] [address] [address] Feb, Acute suppurative otitis med ia of right ear without spontaneous rupture of tympanic membrane, recurrence not specified H66.001 [facility] [address] [address] 17 Feb, 2017 Sore throat J02.9 and Acute suppurative otitis media of right ear without spontaneous rupture of tympanic membrane, recurrence not specified H66.001 [facility] [address] [place] [address] August, Acute non-recurrent pansinus itis J01.40 [facility] [address] [facility] [id number] [address] [place] [phone] Jan, Acute non-recurrent pansinus itis J01.40 [facility] [address] [facility] [id number] [address] [place] [address] Jan, Acute upper respiratory infe ction, unspecified J06.9 [facility] [address] [facility] [id number] [address] [place] [address] Sep, Insomnia G47.00 [facility] [address] [facility] [id number] [address] [place] [phone] Jul, Wellness examination Z00.00 [facility] [address] [place] [id number] [address] [place] [phone] Jul, [facility] [address] [place] [id number] [place] [address] Jul, Nasal congestion R09.81 ; In somnia G47.00 ; Alcohol abuse F10.10 and Wellness examination Z00.00 [facility] [address] [facility] [id number] [address] [place] [phone] Jan, Nasal congestion R09.81 [facility] [address] [facility] [id number] [address] [place] [phone] Jan, [facility] [address] [facility] [id number] [address] [place] [phone] Jan, Nasal congestion R09.81 [facility] [address] [id number] [address] [place] [phone] 14 Jul, 2014 [facility] [address] [place] [id number] [address] [place] [phone] Jul, [facility] [address] [facility] [id number] [address] [place] [phone] Jun, [facility] [address] [place] [id number] [address] [place] [phone] Jun, [facility] [address] [id number] [address] [place] [phone] Jan, [facility] [address] [id number] [address] [place] [phone] Jan, [facility] [address] [id number] [address] [place] [phone] Feb, [facility] [address] [id number] [address] [place] [phone] Feb, [facility] [address] [id number] [address] [place] [phone] Feb, [facility] [address] [id number] [address] [place] [phone] Feb, [facility] [address] [id number] [address] [place] [phone] Feb, [facility] [address] [id number] [address] [place] [phone] Feb, [facility] [address] [id number] [address] [place] [phone] Feb, [facility] [address] [id number] [address] [place] [phone] Feb, [facility] [address] [id number] [address] [place] [phone] Feb, [facility] [address] [id number] [address] [place] [phone] Dec, [facility] [address] [id number] [address] [place] [phone] Nov, [facility] [address] [id number] [address] [place] [phone] Mar, IMMUNIZATIONS No Known Immunizations SOCIAL HISTORY Never Assessed REASON FOR VISIT EMR[place] PLAN OF CARE VITAL SIGNS MEDICATIONS No Known Medications RESULTS No Results PROCEDURES No Known procedures INSTRUCTIONS MEDICATIONS ADMINISTERED No Known Medications MEDICAL (GENERAL) HISTORY Type Description Date Medical History depression, anxiety Surgical History tonsillectomy Surgical History sinus surgery 2014 Surgical History Nasal repair 2015
--- OUTSIDE RECORDS SUMMARY | 2019-10-01 06:18 | XMS REPORT ---
Author Yony Abarca [facility] eClinicalWorks Address Unknown Phone Unavailable Care Team Providers Care Assistant Pastry Chef Name Role Phone PARDEEP YE Unavailable Allergies No Known Allergies Problems Problem Type Condition Code Onset Dates Condition Statu s Problem Insomnia G47.00 Active Problem Wellness examination Z00.00 Active Problem Alcohol abuse F10.10 Active Problem Nasal congestion R09.81 Active Medications No Known Medications Results No Known Results Summary Purpose eClinicalWorks Submission
--- OUTSIDE RECORDS SUMMARY | 2019-10-01 06:18 | XMS REPORT ---
Author Author Yony CHATTERJEE Organization [employer] Address Unknown Phone Unavailable Care Team Providers Care Real Estate Services Administrator Name Role Phone KIRAN CHATTERJEE CP Unavailable Allergies, Adverse Reactions, Alerts Substance Reaction Event Type Cefaclor Info Not Available Drug Allergy Problems Problem Type Condition Code Onset Dates Condition Statu s Problem Insomnia G47.00 Active Problem Wellness examination Z00.00 Active Problem Alcohol abuse F10.10 Active Problem Nasal congestion R09.81 Active Assessment Acute upper respiratory infection, unspecified J06.9 Active Medications Medication Code System Code Instructions Start Date End Date Status Dosage Remeron [facility] [address]-53 30 MG Orally Once a day August 03, 2015 1 tablet before bedtime in the evening Paxil [facility] [address]-62 30 MG Orally Once a day 1 tablet in the morning Saline Nasal Homeworth [facility] [address]-19 0.65 % Nasally every 2 hrs 2 drops in each nostril as needed Procedures Procedure Coding System Code Date Office Visit, Est Pt., Level 3 CPT-[address] 2015 [facility] VISIT ESTABLISHED PATIENT CPT-[address] 2015 Vital Signs Date/Time: Feb 01, 2016 Cardiac Monitoring Heart Rate 77 bpm Weight 244.1 lbs Height 75 in BMI 30.51 Index Blood Pressure Diastolic 85 mmHg Blood Pressure Systolic 129 mmHg Results No Known Results Summary Purpose eClinicalWorks Submission
--- OUTSIDE RECORDS SUMMARY | 2019-10-01 06:18 | XMS REPORT ---
Author Yony Abarca [facility] eClinicalWorks Address Unknown Phone Unavailable Care Team Providers Care Jukebox Coin Collector Name Role Phone PARDEEP YE CP Unavailable Allergies No Known Allergies Problems Problem Type Condition Code Onset Dates Condition Statu s Assessment Wellness examination Z00.00 Active Problem Insomnia G47.00 Active Problem Wellness examination Z00.00 Active Problem Alcohol abuse F10.10 Active Assessment Insomnia G47.00 Active Assessment Alcohol abuse F10.10 Active Problem Nasal congestion R09.81 Active Assessment Nasal congestion R09.81 Active Medications Medication Code System Code Instructions Start Date End Date Status Dosage Paxil [facility] [address]-49 30 MG Orally Once a day 1 [place] [address]-43 30 MG Orally Once a day August 03, 2015 1 tablet before bedtime in the evening Saline Nasal Dendron [facility] [address]-35 0.65 % Nasally every 2 hrs 2 drops in each nostril as needed Procedures Procedure Coding System Code Date Office Visit, Est Pt., Level 4 CPT-4 79122 A pril 2015 [facility] VISIT ESTABLISHED PATIENT CPT-4 G0467 A pril 2015 Vital Signs Date/Time: August 03, 2015 Temperature 98.4 F Weight 236.5 lbs Height 75 in BMI 29.56 Index Blood Pressure Diastolic 88 mmHg Blood Pressure Systolic 142 mmHg Cardiac Monitoring Heart Rate 72 bpm Results No Known Results Summary Purpose eClinicalWorks Submission
--- OUTSIDE RECORDS SUMMARY | 2019-10-01 06:18 | XMS REPORT ---
Author Author Yony Major Doctor Organization [facility] Address Unknown Phone Unavailable Care Team Providers Care Blender Laborer Name Role Phone Migration, Doctor Unavailable Unavailable PROBLEMS Type Condition ICD9-CM Code [id number] Code Onset Dates Condition S tatus SNOMED Code Problem Alcoholism F10.20 Active 1380455 Problem Dysthymia F34.1 Active 84157586 ALLERGIES No Information ENCOUNTERS Encounter Location Date Diagnosis [facility] [address] [address] Feb, Acute sinusitis J01.90 [facility] [address] [address] Feb, [facility] [address] [address] Feb, Acute non-recurrent sinusiti s, unspecified location J01.[address] [facility] [address] [address] Feb, Acute upper respiratory infe ction J06.9 [facility] [address] [address] Mar, Alcoholism F10.20 and Dysthy yonathan F34.1 [facility] [address] [address] Feb, Acute suppurative otitis med ia of right ear without spontaneous rupture of tympanic membrane, recurrence not specified H66.001 [facility] [address] [address] 17 Feb, 2017 Sore throat J02.9 and Acute suppurative otitis media of right ear without spontaneous rupture of tympanic membrane, recurrence not specified H66.001 [facility] [address] [place] [address] August, Acute non-recurrent pansinus itis J01.[address] [facility] [address] [facility] [id number] [address] [place] [address] Jan, Acute non-recurrent pansinus itis J01.40 [facility] [address] [facility] [id number] [address] [place] [phone] Jan, Acute upper respiratory infe ction, unspecified J06.9 [facility] [address] [facility] [id number] [address] [place] [phone] Sep, Insomnia G47.00 [facility] [address] [facility] [id number] [address] [place] [phone] Jul, Wellness examination Z00.00 [facility] [address] [place] [id number] [address] [place] [address] Jul, [facility] [address] [place] [id number] [place] [address] Jul, Nasal congestion R09.81 ; In somnia G47.00 ; Alcohol abuse F10.10 and Wellness examination Z00.00 [facility] [address] [facility] [id number] [address] [place] [address] Jan, Nasal congestion R09.81 [facility] [address] [facility] [id number] [address] [place] [address] Jan, [facility] [address] [facility] [id number] [address] [place] [address] Jan, Nasal congestion R09.81 [facility] [address] [id number] [address] [place] [phone] 14 Jul, 2014 [facility] [address] [place] [id number] [address] [place] [phone] Jul, [facility] [address] [facility] [id number] [address] [place] [phone] Jun, [facility] [address] [place] [id number] [address] [place] [phone] Jun, [facility] [address] [id number] [address] [place] [phone] Jan, [facility] [address] [id number] [address] [place] [phone] Jan, [facility] [address] [id number] [address] [place] [phone] Feb, [facility] [address] [id number] [address] [place] [phone] Feb, [facility] [address] [id number] [address] [place] [phone] Feb, [facility] [address] [id number] [address] [place] [phone] Feb, [facility] [address] [id number] [address] [place] [phone] Feb, [facility] [address] [id number] [address] [place] [phone] Feb, [facility] [address] [id number] [address] [place] [phone] Feb, [facility] [address] [id number] [address] [place] [phone] Feb, [facility] [address] [id number] [address] [place] [phone] Feb, [facility] [address] [id number] [address] [place] [phone] Dec, [facility] [address] [id number] [address] [place] [phone] Nov, [facility] [address] [id number] [address] [place] [phone] Mar, IMMUNIZATIONS No Known Immunizations SOCIAL HISTORY Never Assessed REASON FOR VISIT EMR-[employer] PLAN OF CARE VITAL SIGNS MEDICATIONS Medication Instructions Dosage Frequency Start Date End Date Duration S tatus Oxybutynin Chloride 5 mg 1 tablet by Oral route 1 time per day Feb, Active Amoxicillin 500 mg take 1 capsule (500 mg) by oral route every 8 hours for 30 days for 14 days Jan, Active RESULTS No Results PROCEDURES No Known procedures INSTRUCTIONS MEDICATIONS ADMINISTERED No Known Medications MEDICAL (GENERAL) HISTORY Type Description Date Medical History depression, anxiety Surgical History tonsillectomy Surgical History sinus surgery 2014 Surgical History Nasal repair 2016
--- OUTSIDE RECORDS SUMMARY | 2019-10-01 06:18 | XMS REPORT ---
Author Author Yony TRIPLETT Organization [facility] Address [address] [place] [address] Care Team Providers Care Hand Cloth Examiner Name Role Phone HEBER TRIPLETT Unavailable PROBLEMS Type Condition ICD9-CM Code [id number] Code Onset Dates Condition S tatus SNOMED Code Problem Dysthymia F34.1 Active 45212695 Problem Alcoholism F10.20 Active 2577132 ALLERGIES Substance Reaction Event Type Date Status Cefaclor Unknown Drug Allergy Feb, Active ENCOUNTERS Encounter Location Date Diagnosis [facility] [address] [id number] Feb, Acute upper respiratory infe ction J06.9 [facility] [address] [address] Mar, Alcoholism F10.20 and Dysthy yonathan F34.1 [facility] [address] [address] Feb, Acute suppurative otitis med ia of right ear without spontaneous rupture of tympanic membrane, recurrence not specified H66.001 [facility] [address] [address] 17 Feb, 2017 Sore throat J02.9 and Acute suppurative otitis media of right ear without spontaneous rupture of tympanic membrane, recurrence not specified H66.001 [facility] [address] [address] August, Acute non-recurrent pansinus itis J01.40 [facility] [address] [address] Jan, Acute non-recurrent pansinus itis J01.40 [facility] [address] [id number] [address] [place] [address] 17 Jan, 2016 Acute upper respiratory infe ction, unspecified J06.9 [facility] [address] [id number] [address] [place] [address] 28 Sep, 2015 Insomnia G47.00 [facility] [address] [id number] [address] [place] [address] Jul, Wellness examination Z00.00 [facility] [address] [id number] [address] [place] [phone] 19 Jul, 2015 [facility] [address] [id number] [address] [place] [address] 18 Jul, 2015 Nasal congestion R09.81 ; In somnia G47.00 ; Alcohol abuse F10.10 and Wellness examination Z00.00 [facility] [address] [id number] [address] [place] [phone] Jan, Nasal congestion R09.81 [facility] [address] [id number] [address] [place] [address] Jan, [facility] [address] [facility] [id number] [address] [place] [address] Jan, Nasal congestion R09.81 [facility] [address] [id number] [address] [place] [phone] 14 Jul, 2014 [facility] [address] [id number] [address] [place] [phone] Jul, [facility] [address] [id number] [address] [place] [phone] Jun, [facility] [address] [id number] [address] [place] [phone] Jun, [facility] [address] [facility] [id number] [address] [place] [phone] Jan, [facility] [address] [id number] [address] [place] [phone] Jan, [facility] [address] [id number] [address] [place] [phone] Feb, [facility] [address] [id number] [address] [place] [phone] Feb, [facility] [address] [id number] [address] [place] [phone] Feb, [facility] [address] [id number] [address] [place] [phone] Feb, [facility] [address] [id number] [address] [place] [phone] Feb, [facility] [address] [id number] [address] [place] [phone] Feb, [facility] [address] [id number] [address] [place] [phone] Feb, [facility] [address] [id number] [address] [place] [phone] Feb, [facility] [address] [id number] [address] [place] [phone] Feb, [facility] [address] [id number] [address] [place] [phone] Dec, [facility] [address] [id number] [address] [place] [phone] Nov, [facility] [address] [id number] [address] [place] [phone] Mar, IMMUNIZATIONS No Known Immunizations SOCIAL HISTORY Never Assessed REASON FOR VISIT Sore throat, headache, swollen lymph nodes - SURJIT Quintero PLAN OF CARE Activity Details Follow Up if not improving with PCP or reg follow up Reason: VITAL SIGNS Height 75 in 2018-02-27 Weight 276.2 lbs 2018-02-27 Temperature 98.1 degrees Fahrenheit 2018-02-27 Heart Rate 72 bpm 2018-02-27 Respiratory Rate 18 2018-02-27 BMI 34.52 kg/m2 2018-02-27 Blood pressure systolic 148 mmHg 2018-02-27 Blood pressure diastolic 100 mmHg 2018-02-27 MEDICATIONS Medication Instructions Dosage Frequency Start Date End Date Duration S tatus Paxil 30 MG Orally Once a day 1 tablet in the morning 24h Active Cetirizine HCl 10 MG Orally Once a day 1 tablet 24h Feb, 30 day(s) Active RESULTS No Results PROCEDURES Procedure Date Ordered Result Body Site [facility] VISIT ESTABLISHED PATIENT Feb 27, 2018 INSTRUCTIONS MEDICATIONS ADMINISTERED No Known Medications MEDICAL (GENERAL) HISTORY Type Description Date Medical History depression, anxiety Surgical History tonsillectomy Surgical History sinus surgery 2014 Surgical History Nasal repair 2016
--- OUTSIDE RECORDS SUMMARY | 2019-10-01 06:18 | XMS REPORT ---
Author Author Yony DIAZ Organization [facility] Address [address] [place] [address] Care Team Providers Care Lieutenant Ballistics Name Role Phone KERRI DAIZ Unavailable PROBLEMS Type Condition ICD9-CM Code SRT08-WW Code Onset Dates Condition S tatus SNOMED Code Problem Dysthymia F34.1 Active 51413417 Problem Alcoholism F10.20 Active 5992609 ALLERGIES Substance Reaction Event Type Date Status Cefaclor Unknown Drug Allergy Mar, Active ENCOUNTERS Encounter Location Date Diagnosis [facility] [address] [address] Mar, Alcoholism F10.20 and Dysthy yonathan F34.1 [facility] [address] [id number] Feb, Acute suppurative otitis med ia of right ear without spontaneous rupture of tympanic membrane, recurrence not specified H66.001 [facility] [address] [address] 17 Feb, 2017 Sore throat J02.9 and Acute suppurative otitis media of right ear without spontaneous rupture of tympanic membrane, recurrence not specified H66.001 [facility] [address] [address] August, Acute non-recurrent pansinus itis J01.40 [facility] [address] [id number] Jan, Acute non-recurrent pansinus itis J01.40 [facility] [address] [address] Jan, Acute upper respiratory infe ction, unspecified J06.9 [facility] [address] [id number] [address] [place] [address] Sep, Insomnia G47.00 [facility] [address] [id number] [address] [place] [phone] Jul, Wellness examination Z00.00 [facility] [address] [id number] [address] [place] [phone] Jul, [facility] [address] [id number] [address] [place] [address] 18 Jul, 2015 Nasal congestion R09.81 ; In somnia G47.00 ; Alcohol abuse F10.10 and Wellness examination Z00.00 [facility] [address] [id number] [address] [place] [address] Jan, Nasal congestion R09.81 [facility] [address] [id number] [address] [place] [phone] Jan, [facility] [address] [id number] [address] [place] [address] Jan, Nasal congestion R09.81 [facility] [address] [id number] [address] [place] [phone] Jul, [facility] [address] [id number] [address] [place] [phone] Jul, [facility] [address] [id number] [address] [place] [phone] Jun, [facility] [address] [id number] [address] [place] [phone] Jun, [facility] [address] [id number] [address] [place] [phone] Jan, [facility] [address] [id number] [address] [place] [phone] Jan, [facility] [address] [id number] [address] [place] [phone] Feb, [facility] [address] [id number] [address] [place] [phone] Feb, [facility] [address] [id number] [address] [place] [phone] Feb, [facility] [address] [id number] [address] [place] [phone] Feb, [facility] [address] [id number] [address] [place] [phone] 08 Feb, 2012 [facility] [address] [id number] [address] [place] [phone] Feb, [facility] [address] [id number] [address] [place] [phone] Feb, [facility] [address] [id number] [address] [place] [phone] Feb, [facility] [address] [id number] [address] [place] [phone] Feb, [facility] [address] [id number] [address] [place] [phone] Dec, [facility] [address] [id number] [address] [place] [phone] Nov, [facility] [address] [id number] [address] [place] [phone] Mar, IMMUNIZATIONS No Known Immunizations SOCIAL HISTORY Never Assessed REASON FOR VISIT Physical for general reasons, no concerns-Edmund EDDY, PT has concerns with his l iver and the amount of alcohol he consumes PLAN OF CARE Activity Details Follow Up 1 Year Reason: VITAL SIGNS Height 75 in 2017-04-06 Weight 254.7 lbs 2017-04-06 Temperature 98.7 degrees Fahrenheit 2017-04-06 Heart Rate 66 bpm 2017-04-06 Respiratory Rate 20 2017-04-06 BMI 31.83 kg/m2 2017-04-06 Blood pressure systolic 128 mmHg 2017-04-06 Blood pressure diastolic 84 mmHg 2017-04-06 MEDICATIONS Medication Instructions Dosage Frequency Start Date End Date Duration S tat Paxil 30 MG Orally Once a day 1 tablet in the morning 24h Active RESULTS No Results PROCEDURES Procedure Date Ordered Result Body Site LAB [facility]ILL[facility] Apr 06, 2017 [facility] VISIT ESTABLISHED PATIENT Apr 06, 2017 CASSANDRA CASTILLO* Apr 06, 2017 INSTRUCTIONS MEDICATIONS ADMINISTERED No Known Medications MEDICAL (GENERAL) HISTORY Type Description Date Medical History depression, anxiety Surgical History tonsillectomy Surgical History sinus surgery 2014 Surgical History Nasal repair 2016
--- OUTSIDE RECORDS SUMMARY | 2019-10-01 06:18 | XMS REPORT ---
Author Author Yony CATALAN Organization [facility] Address [address] [place] [address] Care Team Providers Care Scrap Hoist Operator Name Role Phone STEFANIE CATALAN Unavailable PROBLEMS Type Condition ICD9-CM Code [id number] Code Onset Dates Condition S tatus SNOMED Code Problem Insomnia G47.00 Active 893109632 Problem Alcohol abuse F10.10 Active 292200 05 Problem Wellness examination Z00.00 Active 853691154 Problem Nasal congestion R09.81 Active 682 11126 ALLERGIES Substance Reaction Event Type Date Status Cefaclor Unknown Drug Allergy August, Active SOCIAL HISTORY Never Assessed PLAN OF CARE Activity Details Follow Up prn Reason: VITAL SIGNS Height 75 in 2016-08-25 Weight 256.6 lbs 2016-08-25 Temperature 98.2 degrees Fahrenheit 2016-08-25 Heart Rate 76 bpm 2016-08-25 Respiratory Rate 20 2016-08-25 BMI 32.07 kg/m2 2016-08-25 Blood pressure systolic 128 mmHg 2016-08-25 Blood pressure diastolic 82 mmHg 2016-08-25 MEDICATIONS Medication Instructions Dosage Frequency Start Date End Date Duration S tatus Paxil 30 MG Orally Once a day 1 tablet in the morning 24h Active Azithromycin 250 MG Orally Once a day 2 tablets on the fi rst day, then 1 tablet daily for 4 days 24h August, August, 5 day(s) Active RESULTS No Results PROCEDURES Procedure Date Ordered Result Body Site [facility] VISIT ESTABLISHED PATIENT August 25, 2016 IMMUNIZATIONS No Known Immunizations MEDICAL (GENERAL) HISTORY Type Description Date Medical History depression, anxiety Surgical History tonsillectomy Surgical History sinus surgery 2015 Surgical History Nasal repair 2016
--- OUTSIDE RECORDS SUMMARY | 2019-10-01 06:18 | XMS REPORT ---
Author Yony Abarca [facility] eClinicalWorks Address Unknown Phone Unavailable Care Team Providers Care Board Operator Name Role Phone PARDEEP YE CP Unavailable Allergies, Adverse Reactions, Alerts Substance Reaction Event Type N.K.D.A. Info Not Available Non Drug Allergy Problems Problem Type Condition Code Onset Dates Condition Statu s Assessment Nasal congestion R09.81 Active Problem Nasal congestion R09.81 Active Medications Medication Code System Code Instructions Start Date End Date Status Dosage Paxil [facility] [address]-82 30 MG Orally Once a day 1 tablet in the morning Mucinex D [facility] [address]-11 120-1200 MG Orally every [address] 2014Mar 05, 2015 1 tablet as needed Saline Nasal [place] [facility] [address]-59 0.65 % Nasally every 2 hrs 2 drops in each nostril as needed Flonase [facility] [address]-76 50 MCG/ACT Nasally twice daily Jan 15 5 1 spray in each nostril Procedures Procedure Coding System Code Date Office Visit, Est Pt., Level 3 CPT-[address] 2014 [facility] VISIT ESTABLISHED PATIENT CPT-[address] 2014 Vital Signs Date/Time: Feb 03, 2015 Cardiac Monitoring Heart Rate 80 bpm Temperature 97.5 F Height 75 in Blood Pressure Diastolic 88 mmHg Blood Pressure Systolic 150 mmHg Results No Known Results Summary Purpose eClinicalWorks Submission
--- OUTSIDE RECORDS SUMMARY | 2019-10-01 06:18 | XMS REPORT ---
Author Author Yony CATALAN [facility] Address [address] [place] [address] Care Team Providers Care Chip Drier Name Role Phone STEFANIE CATALAN Unavailable PROBLEMS Type Condition ICD9-CM Code IPT93-AX Code Onset Dates Condition S tatus SNOMED Code Problem Dysthymia F34.1 Active 98785346 Problem Alcoholism F10.20 Active 9763409 ALLERGIES Substance Reaction Event Type Date Status Cefaclor Unknown Drug Allergy Feb, Active ENCOUNTERS Encounter Location Date Diagnosis [facility] [address] [address] Mar, Alcoholism F10.20 and Dysthy yonathan F34.1 [facility] [address] [address] Feb, Acute suppurative otitis med ia of right ear without spontaneous rupture of tympanic membrane, recurrence not specified H66.001 [facility] [address] [address] Feb, Sore throat J02.9 and Acute suppurative otitis media of right ear without spontaneous rupture of tympanic membrane, recurrence not specified H66.001 [facility] [address] [address] August, Acute non-recurrent pansinus itis J01.40 [facility] [address] [address] Jan, Acute non-recurrent pansinus itis J01.40 [facility] [address] [place] [id number] [address] [place] [address] Jan, Acute upper respiratory infe ction, unspecified J06.9 [facility] [address] [id number] [address] [place] [phone] Sep, Insomnia G47.00 [facility] [address] [id number] [address] [place] [address] Jul, Wellness examination Z00.00 [facility] [address] [facility] [id number] [address] [place] [address] Jul, [facility] [address] [id number] [address] [place] [address] 18 Jul, 2015 Nasal congestion R09.81 ; In somnia G47.00 ; Alcohol abuse F10.10 and Wellness examination Z00.00 [facility] [address] [id number] [address] [place] [address] Jan, Nasal congestion R09.81 [facility] [address] [id number] [address] [place] [phone] Jan, [facility] [address] [id number] [address] [place] [phone] Jan, Nasal congestion R09.81 [facility] [address] [id number] [address] [place] [phone] Jul, [facility] [address] [id number] [address] [place] [phone] Jul, [facility] [address] [id number] [address] [place] [phone] Jun, [facility] [address] [id number] [address] [place] [phone] Jun, [facility] [address] [id number] [address] [place] [phone] Jan, [facility] [address] [id number] [address] [place] [phone] Jan, [facility] [address] [id number] [address] [place] [phone] Feb, [facility] [address] [id number] [address] [place] [phone] Feb, [facility] [address] [id number] [address] [place] [phone] Feb, [facility] [address] [id number] [address] [place] [phone] Feb, [facility] [address] [id number] [address] [place] [phone] Feb, [facility] [address] [id number] [address] [place] [phone] Feb, [facility] [address] [id number] [address] [place] [phone] Feb, [facility] [address] [id number] [address] [place] [phone] Feb, [facility] [address] [id number] [address] [place] [phone] Feb, [facility] [address] [id number] [address] [place] [phone] Dec, [facility] [address] [id number] [address] [place] [phone] Nov, [facility] [address] [id number] [address] [place] [phone] Mar, IMMUNIZATIONS No Known Immunizations SOCIAL HISTORY Never Assessed REASON FOR VISIT Finished amox yesterday- still has cough, headache, ear fullness, nasal drainage JStrasserRN PLAN OF CARE Activity Details Follow Up prn Reason: VITAL SIGNS Height 75 in 2017-03-14 Weight 257.8 lbs 2017-03-14 Temperature 97.6 degrees Fahrenheit 2017-03-14 Heart Rate 74 bpm 2017-03-14 Respiratory Rate 20 2017-03-14 BMI 32.22 kg/m2 2017-03-14 Blood pressure systolic 126 mmHg 2017-03-14 Blood pressure diastolic 90 mmHg 2017-03-14 MEDICATIONS Medication Instructions Dosage Frequency Start Date End Date Duration S angie Cefdinir 300 MG Orally every 12 hrs 1 capsule 12h Feb, Mar, 10 day(s) Active Clarithromycin 500 MG Orally every 12 hrs 1 tablet 12h Feb, Mar, 10 day(s) Active Paxil 30 MG Orally Once a day 1 tablet in the morning 24h Active Remeron 30 MG Orally Once a day 1 tablet before bedtime in the even ing 24h Jul, Not-Taking Amoxicillin Jan, Not-Galindo ing Flonase Jan, Not-Taking Oxybutynin Chloride 5 mg 1 tablet by Oral route 1 time per day Feb, Not-Taking Saline Nasal Raven 0.65 % Nasally every 2 hrs 2 drops in each no stril as needed Not-Taking RESULTS No Results PROCEDURES Procedure Date Ordered Result Body Site [facility] VISIT ESTABLISHED PATIENT Mar 14, 2017 INSTRUCTIONS MEDICATIONS ADMINISTERED No Known Medications MEDICAL (GENERAL) HISTORY Type Description Date Medical History depression, anxiety Surgical History tonsillectomy Surgical History sinus surgery 2014 Surgical History Nasal repair 2015
--- OUTSIDE RECORDS SUMMARY | 2019-10-01 06:18 | XMS REPORT ---
Author Author Yony Major Doctor Organization [facility] Address Unknown Phone Unavailable Care Team Providers Care Cabinet Professional Name Role Phone Migration, Doctor Unavailable Unavailable PROBLEMS Type Condition ICD9-CM Code [id number] Code Onset Dates Condition S tatus SNOMED Code Problem Alcoholism F10.20 Active 9452098 Problem Dysthymia F34.1 Active 72824113 ALLERGIES No Information ENCOUNTERS Encounter Location Date Diagnosis [facility] [address] [address] Feb, Acute sinusitis J01.90 [facility] [address] [address] Feb, [facility] [address] [address] Feb, Acute non-recurrent sinusiti s, unspecified location J01.90 [facility] [address] [address] Feb, Acute upper respiratory infe ction J06.9 [facility] [address] [address] Mar, Alcoholism F10.20 and Dysthy yonathan F34.1 [facility] [address] [address] 28 Feb, 2017 Acute suppurative otitis med ia of right ear without spontaneous rupture of tympanic membrane, recurrence not specified H66.001 [facility] [address] [address] 17 Feb, 2017 Sore throat J02.9 and Acute suppurative otitis media of right ear without spontaneous rupture of tympanic membrane, recurrence not specified H66.001 [facility] [address] [place] [address] August, Acute non-recurrent pansinus itis J01.40 [facility] [address] [facility] [id number] [place] [address] Jan, Acute non-recurrent pansinus itis J01.40 [facility] [address] [facility] [id number] [place] [address] Jan, Acute upper respiratory infe ction, unspecified J06.9 [facility] [address] [facility] [id number] [place] [address] Sep, Insomnia G47.00 [facility] [address] [facility] [id number] [place] [address] Jul, Wellness examination Z00.00 [facility] [address] [place] [id number] [address] [place] [address] Jul, [facility] [address] [place] [id number] [place] [address] Jul, Nasal congestion R09.81 ; In somnia G47.00 ; Alcohol abuse F10.10 and Wellness examination Z00.00 [facility] [address] [facility] [id number] [place] [address] Jan, Nasal congestion R09.81 [facility] [address] [facility] [id number] [place] [address] Jan, [facility] [address] [facility] [id number] [place] [address] Jan, Nasal congestion R09.81 [facility] [address] [id number] [address] [place] [id number] 14 Jul, 2014 [facility] [address] [place] [id number] [address] [place] [id number] Jul, [facility] [address] [facility] [id number] [place] [address] Jun, [facility] [address] [place] [id number] [address] [place] [phone] Jun, [facility] [address] [id number] [address] [place] [phone] Jan, [facility] [address] [id number] [address] [place] [phone] Jan, [facility] [address] [id number] [address] [place] [phone] Feb, [facility] [address] [id number] [address] [place] [phone] Feb, [facility] [address] [id number] [address] [place] [phone] Feb, [facility] [address] [id number] [address] [place] [phone] Feb, [facility] [address] [id number] [address] [place] [phone] Feb, [facility] [address] [id number] [address] [place] [phone] Feb, [facility] [address] [id number] [address] [place] [phone] Feb, [facility] [address] [id number] [address] [place] [phone] Feb, [facility] [address] [id number] [address] [place] [phone] Feb, [facility] [address] [id number] [address] [place] [id number] Dec, [facility] [address] [id number] [address] [place] [phone] Nov, [facility] [address] [id number] [address] [place] [id number] Mar, IMMUNIZATIONS No Known Immunizations SOCIAL HISTORY Never Assessed REASON FOR VISIT EMR-[facility] PLAN OF CARE VITAL SIGNS MEDICATIONS No Known Medications RESULTS No Results PROCEDURES No Known procedures INSTRUCTIONS MEDICATIONS ADMINISTERED No Known Medications MEDICAL (GENERAL) HISTORY Type Description Date Medical History depression, anxiety Surgical History tonsillectomy Surgical History sinus surgery 2014 Surgical History Nasal repair 2015
--- OUTSIDE RECORDS SUMMARY | 2019-10-01 06:18 | XMS REPORT ---
Author Yony Rosenberg [employer] Address Unknown Phone Unavailable Care Team Providers Care Supervisor Engine Assembly Name Role Phone STEFANIE CATALAN CP Unavailable Allergies, Adverse Reactions, Alerts Substance Reaction Event Type Cefaclor Info Not Available Drug Allergy Problems Problem Type Condition Code Onset Dates Condition Statu s Problem Insomnia G47.00 Active Problem Wellness examination Z00.00 Active Problem Alcohol abuse F10.10 Active Problem Nasal congestion R09.81 Active Assessment Acute non-recurrent pansinusitis J01.40 Active Medications Medication Code System Code Instructions Start Date End Date Status Dosage Remeron [facility] [address]-63 30 MG Orally Once a day August 03, 2015 1 tablet before bedtime in the evening Paxil [facility] [address]-49 30 MG Orally Once a day 1 tablet in the morning Augmentin [facility] [address]-19 875-125 MG Orally every 12 hrs Oc 2015Feb 15, 2016 1 tablet Azithromycin [facility] [address]-20 250 MG Orally Once a day JanFeb 10, 2016 2 tablets on the first day, then 1 tablet daily for 4 days Saline Nasal Archer [facility] [address]-80 0.65 % Nasally every 2 hrs 2 drops in each nostril as needed Procedures Procedure Coding System Code Date Office Visit, Est Pt., Level 3 CPT-[address] 2015 [facility] VISIT ESTABLISHED PATIENT CPT-[address] 2015 Vital Signs Date/Time: Feb 05, 2016 Cardiac Monitoring Heart Rate 82 bpm Weight 245.6 lbs Height 75 in BMI 30.69 Index Blood Pressure Diastolic 64 mmHg Blood Pressure Systolic 118 mmHg Results No Known Results Summary Purpose [employer] Submission
--- OUTSIDE RECORDS SUMMARY | 2019-10-01 06:18 | XMS REPORT ---
Author Author Yony SANTO Organization [facility] Address [address] [place] [address] Care Team Providers Care Tiller Worker Name Role Phone MILTON SANTO Unavailable PROBLEMS Type Condition ICD9-CM Code ICQ68-IP Code Onset Dates Condition S tatus SNOMED Code Problem Alcoholism F10.20 Active 5947603 Problem Dysthymia F34.1 Active 19520902 ALLERGIES No Information ENCOUNTERS Encounter Location Date Diagnosis [facility] [address] [address] 30 Feb, 2018 Acute sinusitis J01.90 [facility] [address] [address] Feb, [facility] [address] [address] Feb, Acute non-recurrent sinusiti s, unspecified location J01.90 [facility] [address] [place] [id number] [place] [address] Feb, Acute upper respiratory infe ction J06.9 [facility] [address] [address] Mar, Alcoholism F10.20 and Dysthy yonathan F34.1 [facility] [address] [place] [id number] [address] [place] [address] 28 Feb, 2017 Acute suppurative otitis med ia of right ear without spontaneous rupture of tympanic membrane, recurrence not specified H66.001 [facility] [address] [place] [id number] [address] [place] [address] 17 Feb, 2017 Sore throat J02.9 and Acute suppurative otitis media of right ear without spontaneous rupture of tympanic membrane, recurrence not specified H66.001 [facility] [address] [id number] [address] [place] [address] August, Acute non-recurrent pansinus itis J01.40 [facility] [address] [id number] [address] [place] [address] Jan, Acute non-recurrent pansinus itis J01.40 [facility] [address] [id number] [address] [place] [address] 17 Jan, 2016 Acute upper respiratory infe ction, unspecified J06.9 [facility] [address] [facility] [id number] [address] [place] [address] Sep, Insomnia G47.00 [facility] [address] [facility] [id number] [address] [place] [address] Jul, Wellness examination Z00.00 [facility] [address] [facility] [id number] [address] [place] [phone] Jul, [facility] [address] [facility] [id number] [address] [place] [id number] 18 Jul, 2015 Nasal congestion R09.81 ; In somnia G47.00 ; Alcohol abuse F10.10 and Wellness examination Z00.00 [facility] [address] [facility] [id number] [address] [place] [id number] Jan, Nasal congestion R09.81 [facility] [address] [facility] [id number] [address] [place] [phone] 05 Jan, 2015 [facility] [address] [facility] [id number] [address] [place] [phone] Jan, Nasal congestion R09.81 [facility] [address] [facility] [id number] [address] [place] [id number] 14 Jul, 2014 [facility] [address] [facility] [id number] [address] [place] [phone] 13 Jul, 2014 [facility] [address] [facility] [id number] [address] [place] [phone] Jun, [facility] [address] [id number] [address] [place] [phone] Jun, [facility] [address] [id number] [address] [place] [phone] Jan, [facility] [address] [id number] [address] [place] [phone] Jan, [facility] [address] [id number] [address] [place] [phone] Feb, [facility] [address] [id number] [address] [place] [phone] Feb, [facility] [address] [id number] [address] [place] [phone] Feb, [facility] [address] [id number] [address] [place] [phone] Feb, [facility] [address] [id number] [address] [place] [phone] Feb, [facility] [address] [id number] [address] [place] [phone] Feb, [facility] [address] [id number] [address] [place] [phone] Feb, [facility] [address] [id number] [address] [place] [phone] Feb, [facility] [address] [id number] [address] [place] [phone] Feb, [facility] [address] [id number] [address] [place] [phone] Dec, [facility] [address] [id number] [address] [place] [phone] Nov, [facility] [address] [id number] [address] [place] [phone] Mar, IMMUNIZATIONS No Known Immunizations SOCIAL HISTORY Never Assessed REASON FOR VISIT PLAN OF CARE VITAL SIGNS Height 75 in 2014-02-12 Weight 228 lbs 2014-02-12 Temperature 98 degrees Fahrenheit 2014-02-12 Heart Rate 92 bpm 2014-02-12 Respiratory Rate 20 2014-02-12 Blood pressure systolic 140 mmHg 2014-02-12 Blood pressure diastolic 78 mmHg 2014-02-12 MEDICATIONS No Known Medications RESULTS No Results PROCEDURES No Known procedures INSTRUCTIONS MEDICATIONS ADMINISTERED No Known Medications MEDICAL (GENERAL) HISTORY Type Description Date Medical History depression, anxiety Surgical History tonsillectomy Surgical History sinus surgery 2014 Surgical History Nasal repair 2015
--- OUTSIDE RECORDS SUMMARY | 2019-10-01 06:18 | XMS REPORT ---
Author Author Yony Major Doctor Organization [facility] Address Unknown Phone Unavailable Care Team Providers Care Turn Out Name Role Phone Migration, Doctor Unavailable Unavailable PROBLEMS Type Condition ICD9-CM Code GLC86-GQ Code Onset Dates Condition S tatus SNOMED Code Problem Alcoholism F10.20 Active 1939908 Problem Dysthymia F34.1 Active 55111772 ALLERGIES No Information ENCOUNTERS Encounter Location Date Diagnosis [facility] [address] [address] Feb, Acute sinusitis J01.90 [facility] [address] [address] Feb, [facility] [address] [address] Feb, Acute non-recurrent sinusiti s, unspecified location J01.90 [facility] [address] [address] Feb, Acute upper respiratory infe ction J06.9 [facility] [address] [address] Mar, Alcoholism F10.20 and Dysthy yonathan F34.1 [facility] [address] [address] 28 Feb, 2017 Acute suppurative otitis med ia of right ear without spontaneous rupture of tympanic membrane, recurrence not specified H66.001 [facility] [address] [address] 17 Feb, 2017 Sore throat J02.9 and Acute suppurative otitis media of right ear without spontaneous rupture of tympanic membrane, recurrence not specified H66.001 [facility] [address] [place] [address] August, Acute non-recurrent pansinus itis J01.40 [facility] [address] [facility] [id number] [address] [place] [address] Jan, Acute non-recurrent pansinus itis J01.40 [facility] [address] [facility] [id number] [address] [place] [address] Jan, Acute upper respiratory infe ction, unspecified J06.9 [facility] [address] [facility] [id number] [address] [place] [address] Sep, Insomnia G47.00 [facility] [address] [facility] [id number] [address] [place] [address] Jul, Wellness examination Z00.00 [facility] [address] [place] [id number] [address] [place] [address] Jul, [facility] [address] [place] [id number] [place] [phone] Jul, Nasal congestion R09.81 ; In somnia G47.00 ; Alcohol abuse F10.10 and Wellness examination Z00.00 [facility] [address] [facility] [id number] [address] [place] [address] Jan, Nasal congestion R09.81 [facility] [address] [facility] [id number] [address] [place] [address] Jan, [facility] [address] [facility] [id number] [address] [place] [address] Jan, Nasal congestion R09.81 [facility] [address] [id number] [address] [place] [address] 14 Jul, 2014 [facility] [address] [place] [id number] [address] [place] [id number] Jul, [facility] [address] [facility] [id number] [address] [place] [phone] Jun, [facility] [address] [place] [id number] [address] [place] [phone] Jun, [facility] [address] [id number] [address] [place] [phone] Jan, [facility] [address] [id number] [address] [place] [address] Jan, [facility] [address] [id number] [address] [place] [phone] Feb, [facility] [address] [id number] [address] [place] [phone] Feb, [facility] [address] [id number] [address] [place] [phone] Feb, [facility] [address] [id number] [address] [place] [id number] Feb, [facility] [address] [id number] [address] [place] [phone] Feb, [facility] [address] [id number] [address] [place] [phone] Feb, [facility] [address] [id number] [address] [place] [phone] Feb, [facility] [address] [id number] [address] [place] [address] Feb, [facility] [address] [id number] [address] [place] [phone] Feb, [facility] [address] [id number] [address] [place] [address] Dec, [facility] [address] [id number] [address] [place] [phone] Nov, [facility] [address] [id number] [address] [place] [id number] Mar, IMMUNIZATIONS No Known Immunizations SOCIAL HISTORY Never Assessed REASON FOR VISIT EMR-[facility] PLAN OF CARE VITAL SIGNS MEDICATIONS No Known Medications RESULTS No Results PROCEDURES No Known procedures INSTRUCTIONS MEDICATIONS ADMINISTERED No Known Medications MEDICAL (GENERAL) HISTORY Type Description Date Medical History depression, anxiety Surgical History tonsillectomy Surgical History sinus surgery 2014 Surgical History Nasal repair 2015
--- OUTSIDE RECORDS SUMMARY | 2019-10-01 06:19 | XMS REPORT | Continuity of Care Document ---
Author Organization Unknown Address Unknown Phone Unavailable Allergies Active Description Code Type Severity Reaction Onset Reported/Identified Relationship to Patient Clinical Status Yes Ceclor Drug Allergy 11/15/2008 Yes Ceclor Drug Allergy N/A N/A 11/15/2008 Yes cefaclor [id number] Drug Allergy Mild N/A 02/12/2009 Yes cefaclor [id number] Drug Allergy Unknown FROM CHILDHOOD 09/24/2019 Medications There is no data. Problems Date Dx Coded Attending Type Code Diagnosis Diagnosed By 03/16/1506 BRITTNEE GUILLERMO, ELENO Velazquez Ot N43.3 HYDROCELE, UNSPECIFIED 03/16/1506 ELENO BEAULIEU MD Ot Z01.8 18 ENCOUNTER FOR OTHER PREPROCEDURAL EXAMIN 03/16/1506 ELENO BEAULIEU MD Ot Z20.8 28 CONTACT W AND EXPOSURE TO OTH VIRAL COMM 11/15/2008 MILTON SANTO APRN 46 2 PHARYNGITIS ACUTE 11/15/2008 MARION JASMINE DO 462 PHARYNGITIS ACUTE 04/16/2010 MILTON SANTO APRN 78 0.8 GENERALIZED HYPERHIDROSIS 04/16/2010 MARION JASMINE DO 780.8 GENERALIZED HYPERHIDROSIS 01/03/2011 MILTON SANTO APRN 84 8.9 SPRAIN/STRAIN OTHER UNSPEC SITE 01/03/2011 MARION JASMINE DO 848.9 SPRAIN/STRAIN OTHER UNSPEC SITE 02/22/2012 MILTON SANTO APRN 705.21 HYPERHIDROSIS 02/22/2012 MILTON SANTO APRN V7 0.5 NORMAL PRE-EMPLOYMENT SCREENING EXAMINATION 02/22/2012 MARION JASMINE DO 705.21 HYPERHIDROSIS 02/22/2012 MARION JASMINE DO V70.5 NORMAL PRE-EMPLOYMENT SCREENING EXAMINATION 02/29/2012 MILTON SANTO APRN 46 5.9 UPPER RESPIRATORY INFECTION 02/29/2012 MILTON SANTO APRN 784.91 POSTNASAL DRIP 02/29/2012 MARION JASMINE DO K 465.9 UPPER RESPIRATORY INFECTION 02/29/2012 MARION JASMINE DO K 784.91 POSTNASAL DRIP 02/12/2014 MILTON SANTO APRN 46 1.9 SINUSITIS ACUTE 09/24/2014 ANGELICA GUILLERMO, CEHNCHO P Ot 470 09/24/2014 ANGELICA GUILLERMO, CHENCHO P Ot 478 .0 09/24/2014 ANGELICA GUILLERMO, CHENCHO P Ot V72.84 09/24/2014 ANGELICA GUILLERMO, CHENCHO P Ot 470 09/24/2014 ANGELICA GUILLERMO, CHENCHO P Ot 478 .0 09/24/2014 ANGELICA GUILLERMO, CHENCHO P Ot V72.84 09/24/2014 ANGELICA GUILLERMO, CHENCHO P Ot 470 09/24/2014 ANGELICA GUILLERMO, CHENCHO P Ot 478 .0 09/24/2014 ANGELICA GUILLERMO, CHENCHO P Ot V72.84 09/26/2014 ANGELICA GUILLERMO, CHENCHO P Ot 470 DEVIATED NASAL SEPTUM 09/26/2014 ANGELICA GUILLERMO, CHENCHO P Ot 478 .0 HYPERTRPH NASAL TURBINAT 11/06/2014 JERRY GUILLERMO, FLORIN T Ot 300.00 ANXIETY STATE NOS 11/06/2014 JERRY GUILLERMO, FLORIN T Ot 307.9 SPECIAL SYMPTOM NEC/NOS 11/06/2014 JERRY GUILLERMO, FLORIN T Ot 478.19 OTHER DISEASE OF NASAL CAVITY AND SINUSE 11/06/2014 JERRY GUILLERMO, FLORIN T Ot 784.0 HEADACHE 09/19/2019 ANGELICA GUILLERMO, CHENCHO P Ot 470 DEVIATED NASAL SEPTUM 09/19/2019 ANGELICA GUILLERMO, CHENHCO P Ot 478 .0 HYPERTRPH NASAL TURBINAT 09/19/2019 ANGELICA GUILLERMO, CHENCHO P Ot V72.84 EXAM PRE-OPERATIVE NOS Procedures Code Description [place] [address] ROUT INE VENIPUNCTURE 02/22/2012 28032 CBC 02/23/2012 75952 CMP 02/23/2012 7699028 GF R CALC (RESULT ONLY) 02/23/2012 44106 TB T EST INTRADERMAL 03/05/2012 Results Test Result Range [facility] - 04/06/17 17:09 GLUCOSE 89 mg/dL 65-99 UREA NITROGEN (BUN) 22 mg/dL 7-25 CREATININE 1.17 mg/dL 0.60-1.35 eGFR NON-AFR. MALAYSIAN 80 mL/min/1.73m2 > OR = 60 eGFR 92 mL/min/1.73m2 > OR = 60 BUN/CREATININE RATIO NOT APPLICABLE (calc) 6-22 SODIUM 137 mmol/L 135-146 POTASSIUM 4.6 mmol/L 3.5-5.3 CHLORIDE 102 mmol/L 98-110 CARBON DIOXIDE 27 mmol/L 20-31 CALCIUM 10.2 mg/dL 8.6-10.3 PROTEIN, TOTAL 7.5 g/dL 6.1-8.1 ALBUMIN 4.6 g/dL 3.6-5.1 GLOBULIN 2.9 g/dL (calc) 1.9-3.7 ALBUMIN/GLOBULIN RATIO 1.6 (calc) 1.0-2. 5 BILIRUBIN, TOTAL 0.9 mg/dL 0.2-1.2 ALKALINE PHOSPHATASE 53 U/L 40-115 AST 32 U/L 10-40 ALT 54 U/L 9-46 CMP - 09/18/19 17:55 GLUCOSE 94 mg/dL 65-99 UREA NITROGEN (BUN) 15 mg/dL 7-25 CREATININE 0.98 mg/dL 0.60-1.35 eGFR NON-AFR. MALAYSIAN 97 mL/min/1.73m2 > OR = 60 eGFR 113 mL/min/1.73m2 > OR = 60 BUN/CREATININE RATIO NOT APPLICABLE (calc) 6-22 SODIUM 139 mmol/L 135-146 POTASSIUM 4.4 mmol/L 3.5-5.3 CHLORIDE 105 mmol/L 98-110 CARBON DIOXIDE 26 mmol/L 20-32 CALCIUM 9.6 mg/dL 8.6-10.3 PROTEIN, TOTAL 6.9 g/dL 6.1-8.1 ALBUMIN 4.7 g/dL 3.6-5.1 GLOBULIN 2.2 g/dL (calc) 1.9-3.7 ALBUMIN/GLOBULIN RATIO 2.1 (calc) 1.0-2. 5 BILIRUBIN, TOTAL 0.5 mg/dL 0.2-1.2 ALKALINE PHOSPHATASE 59 U/L 36-130 AST 30 U/L 10-40 ALT 69 U/L 9-46 CBC - 09/18/19 17:55 WHITE BLOOD CELL COUNT 6.1 Thousand/uL 3 .8-10.8 RED BLOOD CELL COUNT 4.44 Million/uL 4.2 0-5.80 HEMOGLOBIN 14.4 g/dL 13.2-17.1 HEMATOCRIT 42.7 % 38.5-50.0 MCV 96.2 fL 80.0-100.0 MCH 32.4 pg 27.0-33.0 MCHC 33.7 g/dL 32.0-36.0 RDW 12.4 % 11.0-15.0 PLATELET COUNT 262 Thousand/uL 140-400 MPV 8.9 fL 7.5-12.5 ABSOLUTE NEUTROPHILS 3050 cells/uL 1500- 7800 ABSOLUTE LYMPHOCYTES 2336 cells/uL 850-3 900 ABSOLUTE MONOCYTES 604 cells/uL 200-950 ABSOLUTE EOSINOPHILS 79 cells/uL 15-500 ABSOLUTE BASOPHILS 31 cells/uL 0-200 NEUTROPHILS 50 % NRG LYMPHOCYTES 38.3 % NRG MONOCYTES 9.9 % NRG EOSINOPHILS 1.3 % NRG BASOPHILS 0.5 % NRG Coronavirus SARS-CoV-2 SO 2018 0 08:02 Coronavirus Ab [Units/volume] in Serum Negative Negative Encounters ACCT No. Visit Date/Time Discharge Status Pt. Type Provider Facility Loc./Unit Complaint [id number] 09/18/2019 17:40:00 09/18/2019 23:59: 59 CLS Outpatient ELIU [facility]ON [facility] [id number] 09/18/2019 17:40:00 Document Registration [id number] 04/06/2017 16:20:00 Document Registration [id number] 02/12/2014 18:45:00 02/12/2014 23:59: 59 CLS Outpatient MILTON SANTO APRN [id number] 01/03/2011 15:21:00 01/03/2011 23:59:5 9 CLS Outpatient JASMINE MARION GARDNER [id number] 09/26/2019 05:45:00 020 15:07:00 DIS Outpatient ELENO BEAULIEU MD [facility] PREOP HYDROCELE [id number] 11/06/2014 16:27:00 015 19:55:00 DIS Emergency FLORIN EDWARDS MD [facility] ER [facility] [id number] 09/26/2014 06:58:00 015 12:20:00 DIS Outpatient CHENCHO DOMINGUEZ MD [facility] SDC DEVIATED SEPTUM; HYPERT ROPHIC TURBINATES [id number] 09/24/2014 11:30:00 015 23:59:59 CLS Outpatient ANGELICA GUILLERMO, CHENCHO Regan [facility] PREOP DEVIATED SEPTUM; HYPERT ROPHIC TURBINATES [id number] 10/01/2019 08:00:00 P FAROOQ BEAULIEU MD, ELENO Velazquez [facility] HYDROCELE
[2019-10-01] MEDS ORDERED: proPOfol 200 MG/20 ML (DIPRIVAN) VIAL IV ONE (06:40)
[2019-10-01] MEDS ORDERED: fentaNYL INJECTION 100 MCG/2 ML AMP ONE ×2 (06:40→07:38)
[2019-10-01] MEDS ORDERED: ONDANSETRON 4 MG/2 ML (SDV) Z0FRAN ONE (06:41)
[2019-10-01] MEDS ORDERED: LIDOCAINE PF 2% 5 ML (XYLOCAINE) VIAL ONE (06:41)
[2019-10-01] MEDS ORDERED: DEXAMETHASONE 10 MG/ML (DECADRON) 1 ML VIAL ONE (06:41)
[2019-10-01] MEDS ORDERED: MIDAZOLAM 2 MG/2 ML (VERSED) VIAL ONE (06:41)
[2019-10-01] MEDS ORDERED: SEVOFLURANE (ULTANE) 15 ML INHAL SOLN ONE ×5 (06:42→08:53)
[2019-10-01] MEDS: LACTATED RINGERS 1,000 ML IV PRN ×2 (06:44→07:49)
--- NOTE | 2019-10-01 07:28 | Progress Note-Pre Operative ---
Pre-Operative Progress Note H&P Reviewed The H&P was reviewed, patient examined and no changes noted. Date Seen by Provider: Oct 01, 2019 Time Seen by Provider: : Date H&P Reviewed: Oct 01, 2019 Time H&P Reviewed: : Pre-Operative Diagnosis: LT LARGE HYDROCELE ELENO BEAULIEU MD Oct 01, 2019 07:28
--- NOTE | 2019-10-01 07:30 | Progress Note-Post Operative ---
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
--- NOTE | 2019-10-01 07:33 | Discharge Inst-Urology ---
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 Rest till then and scrotal support Ice to scrotum in RR and at home for 6 hours and then PRN To O.P surgery tomorrow 9am to DC drain, may shower after that, no bath Keep bowels soft and moving Increase oral fluids for 48 hours and then as needed. Diet as tolerated. If questions or concerns contact your physician Or seek help at emergency department. ELENO BEAULIEU MD Oct 01, 2019 07:33
[2019-10-01] MEDS ORDERED: fentaNYL INJECTION 100 MCG/2 ML AMP IVP ONE (07:45)
[2019-10-01] MEDS ORDERED: MEPERIDINE (DEMEROL) INJ 50 MG/ML IVP ONE (07:45)
[2019-10-01] MEDS ORDERED: ONDANSETRON 4 MG/2 ML (SDV) Z0FRAN IVP PRN (07:45)
[2019-10-01] MEDS ORDERED: morphine INJ 10 MG/ML 1ML (SYR OR VIAL) IVP ONE (07:45)
[2019-10-01] MEDS ORDERED: HYDR-3870 PO (08:12)
[2019-10-01] MEDS ORDERED: AMOX-355 PO (08:12)
--- NOTE | 2019-10-01 09:53 | Anesthesia-General Post-Op ---
General Patient Condition Mental Status/LOC: Same as Preop Cardiovascular: Satisfactory Nausea/Vomiting: Absent Respiratory: Satisfactory Pain: Controlled Complications: Absent Post Op Complications Complications None Follow Up Care/Instructions Patient Instructions None needed. Anesthesia/Patient Condition Patient Condition Patient is doing well, no complaints, stable vital signs, no apparent adverse anesthesia problems. No complications reported per nursing. TENISHA GOLDSTEIN CRNA Oct 01, 2019 09:53
--- NOTE | 2019-10-01 10:00 | NUR ---
IV DC'D. PATIENT RECEIVED 2 LITERS OF IV FLUID. PATIENT VSS. DISCHARGE INSTRUCTIONS WENT OVER WITH THE PATIENT. PATIENT WILL RETURN TO [facility] [place] AT 1300 TO HAVE MARLENE DRAIN REMOVED.
--- NOTE | 2019-10-01 12:25 | OPERATIVE REPORT ---
DATE OF SERVICE: 10/01/2019 PREOPERATIVE DIAGNOSIS: Left large hydrocele. POSTOPERATIVE DIAGNOSES: 1. Left large hydrocele. 2. Left spermatic cord lipoma. OPERATION PERFORMED: Left hydrocelectomy and excision of left spermatic cord lipoma. SURGEON: Giancarlo Beaulieu MD ANESTHESIA: General. COMPLICATIONS: None. DESCRIPTION OF PROCEDURE: Under satisfactory general anesthesia, the patient in supine position, genitalia, abdomen and thigh were prepped and draped in the usual sterile fashion. Incision was made in the medial raphae, carried through the left scrotal compartment. Large amount of hydrocele fluid was suctioned. There was a large hydrocele sac. It was completely excised and then the edges ligated with 3-0 chromic catgut to prevent recurrence. Noted, there was a large spermatic cord lipoma. There was no evidence of hernia whatsoever even preoperatively. The spermatic cord lipoma was sharply excised and ligated with 3-0 chromic catgut. Hemostasis was complete. The testicle and epididymis and cord were all intact, replaced into the scrotum that was drained with a quarter of an inch [place] drain brought through a separate stab wound at the bottom of the scrotum secured in position with 3-0 chromic catgut. Closure was performed in layer, the dartos with a running 3-0 chromic catgut and the skin was interrupted 4-0 Vicryl. Telfa, fluff and scrotal support was applied. Estimated blood loss was less than 50 mL, none of which was replaced. Needle, sponge, instrument count correct x2. The patient tolerated the procedure and anesthesia well and was sent to recovery room in stable condition. Job ID: [id number] DocumentID: [id number] Dictated Date: 10/01/2019 08:44:02 Planishing Hammer Operator Date: 10/01/2019 12:24:47 Dictated By: GIANCARLO BEAULIEU MD
== END 2019-10-01 10:20 | disposition home or self-care (01) ==
LOC: SDC 06:01
PROVIDERS: ATTEND Urology
DX: N43.3 Hydrocele, unspecified (principal); D17.6 Benign lipomatous neoplasm of spermatic cord; Z88.1 Allergy status to other antibiotic agents; F32.9 Major depressive disorder, single episode, unspecified; F41.9 Anxiety disorder, unspecified; Z79.899 Other long term (current) drug therapy; Z11.2 Encounter for screening for other bacterial diseases
CPT/HCPCS: 87081

== ENCOUNTER → 2019-11-13 | Outpatient (CLI) | payer MEDICARE ==
[~2019-11-13] MED LIST changes: +HYDR-3870 PO
--- NOTE | 2019-11-14 13:38 | Diagnostic Imaging Report ---
PROCEDURE: US Scrotum. TECHNIQUE: Multiple real-time grayscale images were obtained over the scrotum in various projections bilaterally. INDICATION: Left scrotal swelling. COMPARISON: There are no prior exams available for comparison. Reportedly, the patient has had a recent study at [facility]. That ultrasound exam has been sent for and a comparison report will be issued if it arrives. Both testicles were identified. The right testicle measures 4.9 x 3.4 x 2.9 cm while the left testicle is estimated to be 6.0 x 3.1 x 3.2 cm. There is no evidence for a solid testicular mass. There is good blood flow to the right testicle but there is only minimal blood flow to the left testicle. Furthermore, there does appear to be a large complicated septated hydrocele about the left testicle. There may also be some thickening of the scrotal wall. There is no scrotal wall abscess noted. There is no significant hydrocele for formation on the right. The right epididymis is unremarkable aside from a small 4 mm cyst in the epididymal head. The epididymis on the left was not well-visualized. IMPRESSION: 1. There is a large complex septated hydrocele on the left. The left testicle shows no evidence for a mass but there is only minimal blood flow to the testicle. There is also thickening of the scrotal wall of the left. 2. There is no solid mass or torsion involving the right testicle. 3. A comparison report is pending. These results were discussed with Dr. Mann. Dictated on workstation # [id number]
== END ==
LOC: RAD 15:15
PROVIDERS: ATTEND Urology
DX: N43.3 Hydrocele, unspecified (principal); N50.89 Other specified disorders of the male genital organs
CPT/HCPCS: 76870